=== PATIENT | male | born 1945 | race Caucasian/White ===

== ENCOUNTER → 2019-09-23 | Outpatient (REF) | payer MEDICARE, OTHER ==
[2019-09-23 19:29] LABS: PLATELET COUNT, AUTOMATED 277 10^3/uL (150-450)
[2019-09-23 19:41] LABS: INR 1.06; PROTHROMBIN TIME 13.5 SECONDS (11.8-14.0)
[2019-09-23 19:42] LABS: PARTIAL THROMBOPLASTIN TIME 27.7 SECONDS (25.0-38.4)
== END ==
LOC: M LAB REF 18:35
PROVIDERS: ATTEND Physician Assistant
DX: M47.817 Spondylosis without myelopathy or radiculopathy, lumbosacral region (principal); Z79.01 Long term (current) use of anticoagulants